=== PATIENT | male | born 2000 | race Caucasian/White ===

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

== ENCOUNTER 2022-02-03 12:03 | Emergency (ER) | payer BC, OTHER ==
[2022-02-03 12:29] VITALS: BP 128/70; PULSE 88; RESP 16; TEMP 98.3; BMI 28.3
== END 2022-02-03 13:58 | disposition home or self-care (01) ==
LOC: FER 12:03
DX: R05.1 Acute cough (principal); J02.9 Acute pharyngitis, unspecified; B97.4 Respiratory syncytial virus as the cause of diseases classified elsewhere
CPT/HCPCS: 0241U-QW; 99283-25